=== PATIENT | female | born 1960 | race Caucasian/White ===

== ENCOUNTER 2018-11-08 12:14 | Emergency (ER) | payer BC ==
--- NOTE | 2018-11-08 12:20 | UC ---
Abdominal Pain Female HPI - HPI Summary HPI Summary: 58 yo female presents with RUQ abdominal pain. She tells me that she has been having mild RUQ cramping and stabbing pain for the last 2-3 weeks. She saw her PCP who referred her to general surgery. She tells me that an ultrasound was performed and gallstones were found. She was placed on a "gallbladder diet" and surgery was scheduled for November 2018. Today around 1100, about 1 hour after eating cereal for breakfast, she developed acute right sided abdominal and RUQ sharp pain that is worse with deep breaths and movement. The pain has been getting worse since that time. Her friend drove her to . Currently she is in severe pain, but denies fever, nausea, vomiting, diarrhea, dysuria, or hematuria. No SOB or chest pain. No back pain. - History of Current Complaint Stated Complaint: UPPER RIGHT SIDE ABD PAIN Time Seen by Provider: 11/08/18 12:20 Hx Obtained From: Patient Onset/Duration: Sudden Onset Severity Initially: Severe Severity Currently: Severe Pain Intensity: 10 Pain Scale Used: 0-10 Numeric Allergies/Adverse Reactions: Allergies Allergy/AdvReac Type Severity Reaction Status Date / Time No Known Allergies Allergy Verified 11/08/18 13:41 Home Medications: Home Medications NK [No Home Medications Reported] 11/08/18 [History Confirmed 11/08/18] PMH/Surg Hx/FS Hx/Imm Hx - Additional Past Medical History Additional PMH: Gallstones - Surgical History Surgical History: None - Family History Known Family History: Positive: None - Social History Lives: With Family Alcohol Use: Rare Substance Use Type: None Smoking Status (MU): Light Every Day Tobacco Smoker Type: Cigarettes Amount Used/How Often: 5 per day Length of Time of Smoking/Using Tobacco: 40 yrs Have You Smoked in the Last Year: Yes Review of Systems All Other Systems Reviewed And Are Negative: Yes Constitutional: Positive: Negative Skin: Positive: Negative Respiratory: Positive: Negative Cardiovascular: Positive: Negative Gastrointestinal: Positive: Abdominal Pain Genitourinary: Positive: Negative Neurovascular: Positive: Negative Neurological: Positive: Negative Psychological: Positive: Negative Physical Exam - Summary Physical Exam Summary: GENERAL: Moderate pain distress. Clutching right abdomen. Pain worse with movement. SKIN: No rashes, sores, lesions, or open wounds. CHEST: CTAB. No r/r/w. No accessory muscle use. Breathing comfortably and in no distress. CV: RRR. Without m/r/g. Pulses intact. Cap refill <2seconds ABDOMEN: RUQ severe TTP. Positive begum sign. No CVA tenderness. Bowel sounds present NEURO: Alert. PSYCH: Age appropriate behavior. Triage Information Reviewed: Yes Vital Signs: Vital Signs: Temp Pulse Resp BP Pulse Ox 97.1 F 72 20 148/108 98 11/08/18 12:20 11/08/18 12:20 11/08/18 12:20 11/08/18 12:20 11/08/18 12:20 Vital Signs Reviewed: Yes Abd Pain Female Course/Dx - Course Course Of Treatment: I discussed with the pt and her friend, Trice, with her today that her symptoms could be related to acute cholecystitis. I advised pt and her friend that pt should be evaluated in the ED. She was agreeable to this. I discussed ambulance transfer and giving her IVF and IV pain medicine here in the clinic, but pt declined and prefers to have her friend drive her. - Differential Dx/Diagnosis Provider Diagnosis: RUQ pain, Gallstone Discharge - Sign-Out/Discharge Documenting (check all that apply): Patient Departure All imaging exams completed and their final reports reviewed: No Studies - Discharge Plan Condition: Stable Disposition: HOME-RECOMMEND TO ED Referrals: Kaitlyn MARINA,Sara Guerra [Primary Care Provider] - Additional Instructions: Please go to the ER for further evaluation of your abdominal pain YOU HAVE DECLINED TRANSFER TO THE ER BY AMBULANCE. BE ADVISED THAT NOT TRAVELING IN A MONITORED SETTING YOU COULD BE RISKING WORSENING OF YOUR CONDITION THAT COULD POSE A THREAT TO YOUR LIFE, HEALTH, AND MEDICAL SAFETY. - Billing Disposition and Condition Condition: STABLE Disposition: Home-Recommend to ED - Attestation Statements Provider Attestation: Per institutional requirements, I have reviewed the chart, however, I was not consulted specifically or made aware of this patient by the midlevel provider. I did not personally evaluate, interact with , or disposition this patient.
[2018-11-08 12:28] VITALS: BP 148/108
--- OUTSIDE RECORDS SUMMARY | 2018-11-08 12:37 | XMS REPORT | Continuity of Care Document ---
:1960 External Reference #:[id number] Author Name Facundo Wilder M.D. Address [address] [place] [address] [address] [place] [address] Care Team Providers Name Role Phone HCP/LW on file Primary Care Physician Unavailable Payers Date Identification Numbers Payment Provider Subscriber Effective: Policy Number: [id number] David Paulina James 2018 Ind/Ppo/Hmo/Pos PayID: [id number] [address] [address] [place] [address] Advance Directives Description No Information Available Problems Date Description Provider Status Onset: 12/05/2016 Gastroesophageal reflux disease Sara Sahni PA Active Onset: 12/20/2016 Tobacco user Sara Sahni PA Active Family History Date Family Member(s) Observation Comments Father Diabetes, Nos Father Heart Problems Father Stroke Children 2 Social History Type Date Description Comments Sex Unknown Education High School Completed Marital Status Smoke-Free Home is not smoke-free Occupation Warehouse/Manufacturing Work Status Currently Working Tobacco Use Reviewed: 10/28/18 Light tobacco smoker (10 1/2 ppd (or less), or fewer cigarettes/day) started age 16 21 pack years as of 10/28/18 Smoking Status Reviewed: 10/28/18 Light tobacco smoker (10 1/2 ppd (or less) , or fewer cigarettes/day) started age 16 21 pack years as of 10/28/18 ETOH Use Occassional Alcohol Recreational Drug Use Denies Drug Use Tobacco Use Start: Unknown Light tobacco smoker (10 or fewer cigarettes/day) Sun Exposure Uses sunscreen Seat Belt/Car Seat Seat Belt Use - Yes Guns in Home No Smoke Alarms Yes smoke alarm Currently Active Patient is currently not sexually active Allergies, Adverse Reactions, Alerts Description No Known Drug Allergies Medications Medication Date Status Form Strength Qnty SIG Indications Ordering Provider Chantix Active Tablets 0.5mg X 11 53tabs use as F17.210 Shalinicoff , Starting 019 & 1 mg X directed Facundo, Month Toni 42 on package M.D. Tramadol HCL Active Tablets 50mg 30tabs 1 tab by R10.10 Silcoff , 019 mouth Facundo, every 8 M.D. hours as needed for pain Prilosec OTC Active Tablets DR 20mg K21.9 Hektor, 017 LAURA Ruiz Womens One Active Tablets 1 po daily Unknown Daily 017 Ibuprofen Active Tablets 200mg as needed Unknown 017 Immunizations CPT Code Status Date Vaccine Lot # [id number] Given 12/20/2016 Adacel or Boostrix, TDaP [id number] Vital Signs Date Vital Result Comment 10/28/2018 2:28pm BP Systolic 140 mmHg BP Diastolic 80 mmHg Height 65 inches 5'5" Weight 170.50 lb BMI (Body Mass Index) 28.4 kg/m2 12/20/2016 8:49am BP Systolic 130 mmHg BP Diastolic 80 mmHg Height 65 inches 5'5" Weight 197.00 lb BMI (Body Mass Index) 32.8 kg/m2 12/05/2016 11:04am BP Systolic 134 mmHg BP Diastolic 80 mmHg Height 65 inches 5'5" Weight 197.00 lb BMI (Body Mass Index) 32.8 kg/m2 Results Test Date Facility Test Result H/L Range Note Comp Metabolic Panel 10/28/2018 [facility] Sodium 131 mmol/L Low 135- 145 [phone] Potassium 4.6 mmol/L N 3.5-5.0 Chloride 95 mmol/L Low 101-111 Co2 Carbon Dioxide 27 mmol/L N 22-32 Anion Gap 9 mmol/L N 2-11 Glucose 383 mg/dL High 70-100 Blood Urea Nitrogen 12 mg/dL N 6-24 Creatinine 0.61 mg/dL N 0.51-0.95 BUN/Creatinine Ratio 19.7 N 8-20 Calcium 9.7 mg/dL N 8.6-10.3 Total Protein 7.0 g/dL N 6.4-8.9 Albumin 3.7 g/dL N 3.2-5.2 Globulin 3.3 g/dL N 2-4 Albumin/Globulin Ratio 1.1 N 1-3 Total Bilirubin 0.60 mg/dL N 0.2-1.0 Alkaline Phosphatase 155 U/L High 34-104 Alt 13 U/L N 7-52 Ast 9 U/L Low 13-39 Egfr Non- 100.0 >60 Egfr 121.1 >60 1 CBC Auto Diff 10/28/2018 [facility] White Blood 12.5 10^3/uL High 3.5 -10.8 [phone] Count Red Blood Count 4.82 10^6/uL N 3.70-4.87 Hemoglobin 13.7 g/dL N 12.0-16.0 Hematocrit 40 % N 33-41 Mean Corpuscular Volume 82 fL N 80-97 Mean Corpuscular Hemoglobin 28 pg N 27-31 Mean Corpuscular HGB Conc 35 g/dL N 31-36 Red Cell Distribution Width 14 % N 10.5-15 Platelet Count 452 10^3/uL High 150-450 Mean Platelet Volume 8.5 fL N 7.4-10.4 Abs Neutrophils 9.2 10^3/uL High 1.5-7.7 Abs Lymphocytes 2.0 10^3/uL N 1.0-4.8 Abs Monocytes 0.9 10^3/uL High 0-0.8 Abs Eosinophils 0.2 10^3/uL N 0-0.6 Abs Basophils 0.1 10^3/uL N 0-0.2 Abs Nucleated RBC 0 10^3/uL Granulocyte % 74.1 % Lymphocyte % 16.1 % Monocyte % 7.5 % Eosinophil % 1.4 % Basophil % 0.9 % Nucleated Red Blood Cells % 0 Laboratory test finding 10/28/2018 [facility] GGTP 81 U/L High 9- 64.0 [phone] Amylase 17 U/L Low 29-103 Lipase 26 U/L N 11.0-82.0 Laboratory test 12/20/2016 [facility] Vitamin D Total 19.2 ng/mL Low 30-50 finding [phone] 25(Oh) Lipid Profile 12/20/2016 [facility] Triglycerides 107 mg/dL N 2 (Trig/Chol/HDL) [phone] Cholesterol 186 mg/dL N 3 HDL Cholesterol 53.4 mg/dL N 4 LDL Cholesterol 111 mg/dL N 5 Comp Metabolic Panel 12/20/2016 [facility] Sodium 136 mmol/L N 133- 145 [phone] Potassium 4.4 mmol/L N 3.5-5.0 Chloride 102 mmol/L N 101-111 Co2 Carbon Dioxide 26 mmol/L N 22-32 Anion Gap 8 mmol/L N 2-11 Glucose 148 mg/dL High 70-100 Blood Urea Nitrogen 18 mg/dL N 6-24 Creatinine 0.65 mg/dL N 0.51-0.95 BUN/Creatinine Ratio 27.7 High 8-20 Calcium 9.4 mg/dL N 8.6-10.3 Total Protein 7.0 g/dL N 6.4-8.9 Albumin 4.0 g/dL N 3.2-5.2 Globulin 3.0 g/dL N 2-4 Albumin/Globulin Ratio 1.3 N 1-3 Total Bilirubin 0.50 mg/dL N 0.2-1.0 Alkaline Phosphatase 106 U/L High 34-104 Alt 33 U/L N 7-52 Ast 18 U/L N 13-39 Egfr Non- 93.6 N >60 Egfr 120.4 N >60 6 CBC Auto Diff 12/20/2016 [facility] White Blood Count 9.1 10^3/uL N 3.5-10.8 [phone] Red Blood Count 5.03 10^6/uL N 4.0-5.4 Hemoglobin 14.2 g/dL N 12.0-16.0 Hematocrit 42 % N 35-47 Mean Corpuscular Volume 84 fL N 80-97 Mean Corpuscular Hemoglobin 28 pg N 27-31 Mean Corpuscular HGB Conc 34 g/dL N 31-36 Red Cell Distribution Width 15 % N 10.5-15 Platelet Count 312 10^3/uL N 150-450 Mean Platelet Volume 9 um3 N 7.4-10.4 Abs Neutrophils 5.6 10^3/uL N 1.5-7.7 Abs Lymphocytes 2.6 10^3/uL N 1.0-4.8 Abs Monocytes 0.7 10^3/uL N 0-0.8 Abs Eosinophils 0.2 10^3/uL N 0-0.6 Abs Basophils 0.1 10^3/uL N 0-0.2 Abs Nucleated RBC 0 10^3/uL N Granulocyte % 60.9 % N 38-83 Lymphocyte % 28.4 % N 25-47 Monocyte % 7.2 % N 1-9 Eosinophil % 2.6 % N 0-6 Basophil % 0.9 % N 0-2 Nucleated Red Blood Cells % 0 N Urinalysis Profile 12/20/2016 [facility] Urine Color Yellow N [phone] Urine Appearance Clear N Urine Specific Tatum 1.014 N 1.010-1.030 Urine pH 6.0 N 5-9 Urine Urobilinogen Negative N Negative Urine Ketones Negative N Negative Urine Protein Negative N Negative Urine Leukocytes Trace Abnormal Negative Urine Blood Negative N Negative Urine Nitrite Negative N Negative Urine Bilirubin Negative N Negative Urine Glucose Negative N Negative Urine White Blood Cell Trace(0-5/hpf) N Absent Urine Red Blood Cell Trace(0-2/hpf) N Absent Urine Bacteria Absent N Absent Urine Squamous Epithelial Cell Present Abnormal Absent Laboratory test 12/20/2016 [facility] Urine Culture And SEE RESULT 7 finding [phone] Sensitivities BELOW Laboratory test 12/20/2016 [facility] Cytology SEE RESULT 8 finding [phone] BELOW Human Papilloma Virus Rna Negative N Negative 9 1 Because ethnic data is not always readily available, this report includes an eGFR for both -Americans and non- Americans. The National Kidney Disease Education Program (NKDEP) does not endorse the use of the MDRD equation for patients that are not between the ages of 18 and 70, are , have extremes of body size, muscle mass, or nutritional status, or are non- or non-. According to the National Kidney Foundation, irrespective of diagnosis, the stage of the disease is based on the level of kidney function: Stage Description GFR(mL/min/1.73 m(2)) 1 Kidney damage with normal or decreased GFR 90 2 Kidney damage with mild decrease in GFR 60-89 3 Moderate decrease in GFR 30-59 4 Severe decrease in GFR 15-29 5 Kidney failure <15 (or dialysis) 2 Desirable <150 Borderline high 150-199 High 200-499 Very High >500 3 Desirable <200 Borderline high 200-239 High >239 4 Low <40 Desirable: 40-60 High: >60 5 Desirable: <100 mg/dL Near Optimal: 100-129 mg/dL Borderline High: 130-159 mg/dL High: 160-189 mg/dL Very High: >189 mg/dL 6 Because ethnic data is not always readily available, this report includes an eGFR for both -Americans and non- Americans. The National Kidney Disease Education Program (NKDEP) does not endorse the use of the MDRD equation for patients that are not between the ages of 18 and 70, are , have extremes of body size, muscle mass, or nutritional status, or are non- or non-. According to the National Kidney Foundation, irrespective of diagnosis, the stage of the disease is based on the level of kidney function: Stage Description GFR(mL/min/1.73 m(2)) 1 Kidney damage with normal or decreased GFR 90 2 Kidney damage with mild decrease in GFR 60-89 3 Moderate decrease in GFR 30-59 4 Severe decrease in GFR 15-29 5 Kidney failure <15 (or dialysis) 7 SEE RESULT BELOW Name: PAULINA JAMES : [address]: Sara MARINA Acct: [id number] Unit: [id number] AGE: 56 Location: [facility] Re12/20/16 SEX: F Status: REG REF SPEC: [id number] RIMA: 12/20/16-[address] [place] [address] DR: Sara MARINA REQ: [id number] RECD: 12/20/16 STATUS: COMP _ SOURCE: URINE SPDESC: ORDERED: Urine Culture Procedure Result Reported Site Urine Culture Final 12/21/16- 1247 ML No growth of clinically significant organisms * ML - MAIN LAB ([facility]) . END OF REPORT * ML=Testing performed at Main Lab DEPARTMENT OF PATHOLOGY, [address] [place] [address] Randell Cr M.D. Director [facility] # [id number] 8 SEE RESULT BELOW Name: PAULINA JAMES : [address]: Sara MARINA Acct: [id number] Unit: [id number] AGE: 56 Location: [facility] Re12/20/16 SEX: F Status: REG REF SPEC: [id number] RIMA: 12/20/16-[address]: Sara MARINA REQ: [id number] RECD: 12/20/16 STATUS: SOUT _ ORDERED: TP IMAGE ANAL, HPV/Thin Prep COMMENTS: [id number] FINAL DIAGNOSIS Negative for Intraepithelial lesion or Malignancy A. Ectocervical/Endocervical Specimen Adequacy: Satisfactory of evaluation Transformation zone component identified Patient Information: HPV: High risk HPV RNA testing regardless of pap results. Actual Specimen Date: 12/20/16 LMP If Unknown: 6 yrs ago Spec Date if unknown: unknown ?: N Post Menopausal?: Y Hysterectomy?: N Previous Abnormal Pap Smears?:Y If Yes, enter Diagnosis: unknown Date Time Test Result Flag (u) Normal Range 12/20/16 0954 HPV RNA Negative Negative The high-risk HPV types detected by the assay include: 16, 18, 31, 33, 35, 39, 45, 51, 52, 56, 58, 59, 66, and 68. Signed (signature on file) LIZ Munoz(ASC) 12/21 1533 This Pap test was evaluated with the assistance of the NumonyxPrep Test Imaging System. Due to cytologic findings at the forgesmith microscope, comprehensive manual rescreening by a Radiation Oncology Nurse may be required. The Pap Smear is a screening test designed to aid in the detection of premalignant and malignant conditions of the uterine cervix. It is not a diagnostic procedure and should not be used as the sole means of detecting cervical cancer. Both false- positive and false- negative reports do occur. Depending on your risk status, a Pap smear should be obtained and evaluated every 1-3 years. END OF REPORT * ML=Testing performed at Main Lab DEPARTMENT OF PATHOLOGY, [address] [place] [address] RUN DATE: 12/21/16 [facility] LAB LIVE PAGE 1 Patient: PAULINA JAMES [id number] (Continued) Randell Cr M.D. Director [facility] # [id number] 9 The high-risk HPV types detected by the assay include: 16, 18, 31, 33, 35, 39, 45, 51, 52, 56, 58, 59, 66, and 68. Procedures Date Code Description Status 12/27/2016 [id number] Mammogram Completed Encounters Type Date Location Provider Dx Diagnosis Office Visit 10/28/2018 Main Office Sara Sahni PA R10.10 Upper abdominal pain, 2:30p unspecified F17.210 Nicotine dependence, cigarettes, uncomplicated Office Visit 12/20/2016 8:45a Main Office Sara Sahni PA Z00.00 Encntr for general adult medical exam w/o abnormal findings Z12.31 Encntr screen mammogram for malignant neoplasm of breast Z12.4 Encounter for screening for malignant neoplasm of cervix Z23 Encounter for immunization Z12.11 Encounter for screening for malignant neoplasm of colon Z41.8 [facility] 12/[facility]/2016 11:00a Main Office Sara Sahni, K21.9 Gastro- esophageal PA reflux disease without esophagitis F17.210 Nicotine dependence, cigarettes, uncomplicated R10.13 Epigastric pain Plan of Treatment 10/28/2018 - Sara Sahni, PAR10.10 Upper abdominal pain, unspecifiedNew Medication:Tramadol HCL 50 mg - 1 tab by mouth every 8 hours as needed for painNew Xrays:ultrasound abdomen, limited, Ordered: 10/28/18Comments:RUQ abdominal pain w positive Benson sign, suspicious for gallbladder dz. Labs drawn today, will get RUQ abdominal u/s gosia. Rx for tramadol for pain control. Discussed gallstone appropriate diet. Pt to call w any questions or concerns. Further plan based on u/s and lab results.F17.210 Nicotine dependence, cigarettes, uncomplicatedNew Medication:Chantix Starting Month Toni 0.5 mg X 11 & amp; 1 mg X 42 - use as directed on packageComments:Smoking cessation counseling <10 minutes done today. Pt is ready to quit. Rx for chantix.
== END 2018-11-08 12:45 | disposition home health service (06) ==
LOC: UCCORT 12:14
DX: K80.20 Calculus of gallbladder without cholecystitis without obstruction (principal); R10.11 Right upper quadrant pain; F17.210 Nicotine dependence, cigarettes, uncomplicated
CPT/HCPCS: 99212; G0463

== ENCOUNTER 2018-11-08 13:36 | Inpatient (IN) | payer BC ==
--- NOTE | 2018-11-08 14:22 | ED ---
Abdominal Pain/Female - HPI Summary HPI Summary: This patient is a 58 year old female presenting to [facility] accompanied by with a chief complaint of abd pain since 1030 today. Patient states that she is scheduled to have a cholecystectomy on December 03, 2018. Patient was on antibiotics for the past week. Patient states the pain was sudden onset and so severe that she cannot move due to pain. The pain is located in the mid-right abd, and radiates to her back and shoulder. The pain is rated 10/10 in severity. Symptoms aggravated by movement. Symptoms alleviated by nothing. Patient additionally reports nausea. - History of Current Complaint Chief Complaint: EDAbdPain Stated Complaint: ABD PAIN PER PT Time Seen by Provider: 11/08/18 14:11 Hx Obtained From: Patient Onset/Duration: Lasting Hours, Still Present Timing: Constant Severity Currently: Severe Pain Intensity: 10 Pain Scale Used: 0-10 Numeric Location: Flank Radiates: Yes Radiates to: Back, Other - shoulder Character: Cramping Aggravating Factor(s): Nothing Alleviating Factor(s): Nothing Associated Signs and Symptoms: Positive: Other: - nausea Allergies/Adverse Reactions: Allergies Allergy/AdvReac Type Severity Reaction Status Date / Time No Known Allergies Allergy Verified 11/08/18 13:41 Home Medications: Home Medications Multivitamin [Multivitamins] 1 cap PO DAILY 11/08/18 [History Confirmed 11/08/18 ] PMH/Surg Hx/FS Hx/Imm Hx Previously Healthy: Yes Opthamlomology History: Denies: Hx Legally Blind EENT History: Denies: Hx Deafness - Cancer History Hx Chemotherapy: No Hx Radiation Therapy: No Infectious Disease History: No Infectious Disease History: Denies: Traveled Outside the [place] in Last 30 Days - Family History Known Family History: Negative: Hypertension - Social History Lives: With Family Alcohol Use: Rare Hx Substance Use: No Substance Use Type: Reports: None Hx Tobacco Use: Yes Smoking Status (MU): Light Every Day Tobacco Smoker Type: Cigarettes Amount Used/How Often: 5 per day Length of Time of Smoking/Using Tobacco: 40 yrs Have You Smoked in the Last Year: Yes Review of Systems Negative: Fever Negative: Sore Throat, Ear Ache Negative: Chest Pain Negative: Shortness Of Breath Positive: Abdominal Pain, Nausea Negative: burning, dysuria Negative: Edema Negative: Rash Negative: Headache All Other Systems Reviewed And Are Negative: Yes Physical Exam - Summary Physical Exam Summary: Constitutional: Well-developed, Well-nourished, Alert. Skin: Warm, Dry HENT: Normocephalic; Atraumatic Eyes: Conjunctiva normal Neck: Musculoskeletal ROM normal neck. Cardio: Rhythm regular, rate normal, Heart sounds normal; Intact distal pulses; The pedal pulses are 2+ and symmetric. Radial pulses are 2+ and symmetric. Pulmonary/Chest wall: Effort normal. Abd: Moderate to severe diffuse abd pain. Worse in ruq, epigastric, llq. Rebound and guarding Musculoskeletal: Normal Lymph: Neuro: Alert, Oriented x3 Psych: Mood and affect Normal Triage Information Reviewed: Yes Vital Signs On Initial Exam: Initial Vitals Temp Pulse Resp BP Pulse Ox 99.5 F 73 22 113/66 96 11/08/18 13:41 11/08/18 13:41 11/08/18 13:41 11/08/18 13:41 11/08/18 13:41 Vital Signs Reviewed: Yes Diagnostics - Vital Signs Vital Signs Temp Pulse Resp BP Pulse Ox 11/08/18 13:41 99.5 F 73 22 113/66 96 - Laboratory Result Diagrams: 11/08/18 14:50 11/08/18 14:50 Lab Statement: Any lab studies that have been ordered have been reviewed, and results considered in the medical decision making process. - Radiology CXR Radiology Interpretation Completed By: Radiologist Summary of Radiographic Findings: CXR reveals, per radiologist, IMPRESSION: NO EVIDENCE FOR ACTIVE CARDIOPULMONARY DISEASE. ED physician has reviewed this radiology report. Abdomen XR Radiology Interpretation Completed By: Radiologist Summary of Radiographic Findings: Abdomen XR reveals, per radiologist, IMPRESSION: MILD DISTENTION OF A COUPLE SMALL BOWEL LOOPS, NONSPECIFIC PATTERN ALTHOUGH. MAY INDICATE A PARTIAL SMALL BOWEL OBSTRUCTION. ED physician has reviewed this radiology report. - CT CT Abd/Pel CT Interpretation Completed By: Radiologist - CT Abd/Pel reveals, per radiologist, IMPRESSION: Distended, thick walled gallbladder with surrounding inflammatory changes suggestive of acute cholecystitis. ED physician has reviewed this radiology report. Abdominal Pain Fem Course/Dx - Course Course Of Treatment: This patient is a 58 year old female presenting to [facility] accompanied by with a chief complaint of abd pain since 1030 today. Patient states that she is scheduled to have a cholecystectomy on December 03, 2018. Patient was on antibiotics for the past week. Patient states the pain was sudden onset and so severe that she cannot move due to pain. PE reveals moderate to severe diffuse abd pain. Worse in ruq, epigastric, llq. Rebound and guarding. CXR reveals, per radiologist, IMPRESSION: NO EVIDENCE FOR ACTIVE CARDIOPULMONARY DISEASE. ED physician has reviewed this radiology report. Abdomen XR reveals, per radiologist, IMPRESSION: MILD DISTENTION OF A COUPLE SMALL BOWEL LOOPS, NONSPECIFIC PATTERN ALTHOUGH MAY INDICATE A PARTIAL SMALL BOWEL OBSTRUCTION. ED physician has reviewed this radiology report. CT Abd/Pel reveals, per radiologist, IMPRESSION: Distended, thick walled gallbladder with surrounding inflammatory changes suggestive of acute cholecystitis. ED physician has reviewed this radiology report. Bloodwork Obtained. Urinalysis Obtained. In the ED course the patient was given Iohexol, Morphine, Zofran, Pipercillin. The pt is hemodynamically stable, alert and oriented x3. We discussed patient care with Dr. Potter (Surgery) at 194 and they recommended admitting the patient. Patient will be admitted with a dx of cholecystitis. Patient is advised to follow up with PCP in 3 days. The patient is agreeable with this plan. - Diagnoses Provider Diagnoses: Cholecystitis - Provider Notifications Discussed Care Of Patient With: Emile Potter - Surgery Time Discussed With Above Provider: 19:45 - We discussed patient care with Dr. Potter (Surgery) at 1944 and they recommended admitting the patient. Discharge - Sign-Out/Discharge Documenting (check all that apply): Patient Departure Patient Received Moderate/Deep Sedation with Procedure: No - Discharge Plan Condition: Stable Disposition: ADMITTED TO [facility] Referrals: Kaitlyn MARINA,Sara Guerra [Primary Care Provider] - - Billing Disposition and Condition Condition: STABLE Disposition: Admitted to [facility] - Attestation Statements Document Initiated by Antione: Yes Documenting Scribe: Lobo Pacheco Provider For Whom Antione is Documenting (Include Credential): MD Arti Gilmoreibnathalia Attestation: Lobo Macias scribed for Leena Garcia MD on 11/08/18 at 2036. Scribe Documentation Reviewed: Yes Provider Attestation: The documentation as recorded by the Lobo haq accurately reflects the service I personally performed and the decisions made by , Leena Garcia MD Status of Scribe Document: Viewed
[2018-11-08] MEDS ORDERED: Ondansetron INJ* 2 MG/ML VIAL IV ONE (14:23)
[2018-11-08 15:02] LABS: Hematocrit 40 % (33-41); Hemoglobin 13.4 g/dL (12.0-16.0); Mean Corpuscular HGB Conc 34 g/dL (31-36); Mean Corpuscular Hemoglobin 28 pg (27-31); Mean Corpuscular Volume 83 fL (80-97); Mean Platelet Volume 8.1 fL (7.4-10.4); Platelet Count 622 10^3/uL (150-450); Red Cell Distribution Width 14 % (10.5-15); White Blood Count 16.7 10^3/uL (3.5-10.8)
[2018-11-08] MEDS ORDERED: Morphine 4 MG/ML VIAL (1 ml) 4 MG/ML VIAL ONE (15:06)
[2018-11-08] MEDS: Morphine 4 MG/ML VIAL (1 ml) 4 MG/ML VIAL IV PRN ×2 (15:07→20:53)
[2018-11-08 15:19] LABS: Albumin 3.5 g/dL (3.2-5.2); BUN/Creatinine Ratio 16.1 (8-20); C Reactive Protein 13.69 mg/L (<8.01); EGFR African American 118.8 (>60); EGFR Non-African American 98.2 (>60); Globulin 3.4 g/dL (2-4); Potassium 4.1 mmol/L (3.5-5.0); Total Bilirubin 0.3 mg/dL (0.2-1.0); Total Protein 6.9 g/dL (6.4-8.9)
[2018-11-08 15:25] LABS: ABS Basophils 0 10^3/ul (0-0.2); ABS Eosinophils 0.1 10^3/ul (0-0.6); ABS Lymphocytes 1.5 10^3/ul (1.0-4.8); ABS Nucleated RBC 0 10^3/ul; Eosinophil % 0.7 %; Lymphocyte % 8.8 %; Nucleated Red Blood Cells % 0
[2018-11-08 17:18] LABS: Urine Appearance Cloudy; Urine Bacteria 1+ (Absent); Urine Bilirubin Negative (Negative); Urine Blood Negative (Negative); Urine Color Yellow; Urine Glucose 3+(>=500 mg/dL) (Negative); Urine Ketones Trace (Negative); Urine Nitrite Negative (Negative); Urine Protein Negative (Negative); Urine Red Blood Cell 1+(3-5/hpf) (Absent); Urine Squamous Epithelial Cell Present (Absent); Urine Urobilinogen Negative (Negative); Urine White Blood Cell 1+(6-10/hpf) (Absent)
[2018-11-08] MEDS ORDERED: Iohexol 300* (CONTRAST) 10 ML SDV IV ONE (17:47)
[2018-11-08] MEDS ORDERED: Morphine 4 MG/ML VIAL (1 ml) 4 MG/ML VIAL IV PRN (19:42)
[2018-11-08] MEDS ORDERED: ED Piperacillin/Tazobac 3.375 3.375 GM/100 ML PREMIX.SET IVPB ONE (19:49)
[2018-11-08] MEDS ORDERED: Zosyn 3.375 GM IV - ED ONCE IVPB ONE ×2 (21:00)
[2018-11-08] MEDS ORDERED: Ondansetron INJ* 2 MG/ML VIAL IV PRN (21:33)
[2018-11-08] MEDS ORDERED: Piperacillin/Tazobactam VIAL*) 3.375 GM in NS 0.9% 100 ML* 100 ML IVPB SCH (22:00)
[2018-11-08] MEDS ORDERED: Dextrose 50% Syringe 50 ML* 25 GM/50 ML SYRINGE IV PUSH PRN (23:02)
[2018-11-08] MEDS: HYDROmorphone INJ1* 1 MG/ML SYRINGE IV SLOW PU PRN (23:28)
--- NOTE | 2018-11-08 23:36 | HP ---
CC: Emile Potter MD; LAURA Booth INTERVAL UPDATE HISTORY AND PHYSICAL: DATE OF ADMISSION: 11/08/18 CHIEF COMPLAINT: Abdominal pain. HISTORY OF PRESENT ILLNESS: Ms. Nguyen is a 58-year-old female who has been seen a few times in the office over the last week with acute cholecystitis. She had a week of antibiotics and was feeling better, and was seen 2 days ago and was scheduled for elective surgery in the next week or two; however, today she started to have intense exacerbation of her pain and comes back to the emergency room. She is not having any change in color of stool or urine. No vomiting. She is a little queasy. She is not having fevers. The pain is exactly like what she had before. She had had an ultrasound done on 10/30/18, which showed a stone in the neck of the gallbladder with some mild gallbladder wall thickening. The current evaluation includes a CT scan, which shows distended thick-walled gallbladder with surrounding inflammatory changes. Her laboratory study showed elevated white blood count of 16.7 and electrolytes are essentially normal and her bilirubin is normal. PHYSICAL EXAMINATION GENERAL: She is a well-developed, well-nourished female. She just appears acutely uncomfortable. VITAL SIGNS: Temperature is 99.5, heart rate 93, respirations 18 and unlabored , O2 saturation 91%, blood pressure 122/63. She is 5 feet 5 inches, 170 pounds with a BMI of 28. LUNGS: Breathing is easy and unlabored. HEART: Regular. ABDOMEN: Soft and exquisitely tender over the right subcostal region with Elizalde sign. No gross peritonitis. SKIN: Warm and well perfused. She is not diabetic. She is not jaundiced. She is maybe a little flushed. IMPRESSION: A 58-year-old female with known biliary disease, planned for elective laparoscopic cholecystectomy, now returns with an acute exacerbation. PLAN/RECOMMENDATIONS: She will be admitted for intravenous hydration, analgesia , and we will likely need her gallbladder out in the next 24 to 48 hours. [id number]/[facility]PS #: [id number] MTDD
[2018-11-09] MEDS: HYDROmorphone INJ1* 1 MG/ML SYRINGE IV SLOW PU PRN ×5 (00:48→11:45)
[2018-11-09] MEDS: ZOSYN 3.375 GM Q8H per EXTENDED INFUSION IVPB SCH ×6 (00:49→17:45)
--- NOTE | 2018-11-09 05:58 | CONS ---
HOSPITAL MEDICINE CONSULTATION REPORT: DATE OF CONSULT: 11/08/18 PROVIDER: Gildardo Valdez NP. ATTENDING PHYSICIAN: Dr. Potter. CONSULTING PHYSICIAN: Dr. Cricket Alexis (dictated by Gildardo Valdez NP). REASON FOR CONSULT: Hyperglycemia. HISTORY OF PRESENT ILLNESS: Ms. Nguyen is a 58-year-old female, who has past medical history of recent type 2 diabetes diagnosis, who presented to the emergency room with complaints of sudden onset of acute abdominal pain. Patient reports that approximately 2 weeks ago, she had what she refers to as " a gallbladder attack." At that time, she was seen by her primary care provider and sent for a gallbladder ultrasound. She was found to have stones and ultimately referred to surgery due to the findings. She saw Dr. Dominguez last week in the office and was scheduled on 12/03/18 to have her gallbladder removed. She reports that at the time she saw Dr. Dominguez she was placed on antibiotics for 7 days and she completed that 7-day course. She reports that on Saturday, , and Saturday, she was feeling well and having no issues. She reports that she has been maintaining a gallbladder diet. She reports that she awoke this morning feeling fine. She had tea and Raisin Bran without any issue. She went shopping with one of her friends and reports that while in one of the stores developed the sudden onset of abdominal pain that was sharp, crampy in her upper abdomen, was not relieved or provoked by anything. She reports that it felt like a cramp in her upper abdomen. She reports that she felt chilled. Due to these symptoms and the continuing, progressively worsening abdominal pain, she presented to the emergency room for further evaluation. While in the emergency room, she had routine lab work drawn. She was found to have leukocytosis with a white count of 16.[address] she had a CT of the abdomen that showed acute cholecystitis. Due to these findings, she was admitted to the hospital by surgery. We were asked to consult due to the findings of hyperglycemia and new diagnosis of type 2 diabetes. PAST MEDICAL HISTORY: Type 2 diabetes. PAST SURGICAL HISTORY: [place] teeth. MEDICATIONS: Home medications, none. ALLERGIES: No known drug allergies. FAMILY HISTORY: Father with stroke and hypertension in his 60s, father with type 1 diabetes, adult onset. Mother with history of lymphoma. SOCIAL HISTORY: Patient currently smokes approximately 5 cigarettes a day. She reports that she smoked for approximately 40 years a quarter to half a pack a day. Denies any alcohol or illicit drug use. She currently works at [employer]. She is and lives with her . Surrogate decision maker in the event she is unable to make her own decisions is her . She is a full code. REVIEW OF SYSTEMS: She does report feeling hot and chills. Denies any chest pain or edema, cough, hemoptysis, or shortness of breath. She does report nausea. Denies any vomiting. Denies diarrhea. She does report right upper quadrant abdominal pain that is sharp and cramping. Denies any hematuria, dysuria, focal weakness, or sensory loss. Denies any visual complaints, dysphagia, arthralgias, myalgias. She does report a rash to her posterior neck. Denies any psychosis or anxiety. PHYSICAL EXAM: General: At this time, Ms. Nguyen is a 58-year-old female. She is resting on the stretcher in the emergency room. She appears to be uncomfortable, holding her upper abdomen. Vital Signs: Blood pressure is 114/ 65, heart rate 84, respirations are 17, O2 saturation is 94%, temperature was 98.2. HEENT: Head is atraumatic, normocephalic. Eyes, EOMs are intact. Sclerae anicteric and not pale. Oral mucosa appeared to be moist. Neck is supple. Lungs are clear to auscultation bilaterally. No wheezes, rales, or rhonchi. Cardiac: S1, S2. Regular rate and rhythm. No murmurs, rubs, or gallops. Abdomen: Soft with significant tenderness noted to the right upper quadrant and mid epigastric region. Bowel sounds are present x4. Neurologic: She is awake, alert, and oriented x3. Speech is clear. Thought process is intact. There are no gross focal deficits. Skin is intact. DIAGNOSTIC STUDIES/LAB DATA: WBCs are 6.7, RBCs are 4.80, hemoglobin is 13.4, hematocrit is 40, platelet count is 622. Sodium 134, potassium 4.1, chloride 99 , carbon dioxide was 28, anion gap was 7, BUN was 10, creatinine 0.62, glucose was 323, lactic acid of 1.1 and repeat 0.8, calcium 9.0. Total bilirubin was 0.30, ASTs were 10, ALTs were 12, alkaline phosphatase was 106. C-reactive protein was 13.69, amylase was 19, and lipase was 17. Urine was cloudy, pH was 5, specific gravity of 1.030. Urine protein was negative. Ketones were trace. Urine blood, nitrites, bilirubin, urobilinogen were all negative. Urine leukocyte esterase was 1+, wbc's were 1+, rbc's were 1+, squamous epithelial cells were present, urine bacteria was 1+, urine glucose was 3+. She had an x-ray of the abdomen, radiologist impression: Mild distention of a couple of small-bowel loops, nonspecific pattern, although may indicate partial small-bowel obstruction. She had a CT of the abdomen and pelvis, distended thick- walled gallbladder, surrounding inflammatory changes suggestive of acute cholecystitis. She had a chest x-ray, radiologist impression: No evidence of active cardiopulmonary disease. IMPRESSION AND PLAN: Ms. Nguyen is a 58-year-old female with past medical history significant for new-onset type 2 diabetes who presented to the hospital with acute abdominal pain. She was seen by surgery and we were asked to consult due to her new onset of diabetes. Our recommendations are as follows: 1. Acute cholecystitis. Management per surgery. 2. Abdominal pain. The patient does have an elevated platelet count. I suspect this is related to acute phase reaction from her acute cholecystitis. We will continue to monitor her CBC. 3. New-onset type [address] her on fingersticks q.6 hours with lispro sliding scale q.6 hours. She can be converted to fingersticks a.c. when she is able to tolerate a diet after surgery. 4. DVT prophylaxis. Per surgery. 5. FEN. She is on a clear liquid diet. 6. Code status. She is a full code. TIME SPENT: Time spent on this consultation was approximately 45 minutes, greater than half that time was spent at the bedside reviewing the events leading thus far to her hospitalization, performing my physical exam, and implementing my plan of care. I have discussed with my attending, Dr. Cricket Alexis, and he is in agreement with my plan. GILDARDO VALDEZ, RED LEAD BURNER [id number]/[facility] #: [id number] JAYLIN
[2018-11-09] MEDS ORDERED: Insulin LISPRO* 1 UNITS UNIT SUBCUT SCH ×2 (07:30)
[2018-11-09 08:21] LABS: ABS Basophils 0.1 10^3/ul (0-0.2); ABS Eosinophils 0.1 10^3/ul (0-0.6); ABS Lymphocytes 1.6 10^3/ul (1.0-4.8); ABS Monocytes 1.2 10^3/ul (0-0.8); ABS Neutrophils 10.3 10^3/ul (1.5-7.7); ABS Nucleated RBC 0 10^3/ul; Eosinophil % 0.6 %; Hematocrit 38 % (33-41); Hemoglobin 12.8 g/dL (12.0-16.0); Mean Corpuscular HGB Conc 33 g/dL (31-36); Mean Corpuscular Hemoglobin 28 pg (27-31); Mean Corpuscular Volume 83 fL (80-97); Mean Platelet Volume 8.2 fL (7.4-10.4); Nucleated Red Blood Cells % 0; Platelet Count 546 10^3/uL (150-450); Red Blood Count 4.58 10^6 /uL (3.70-4.87); Red Cell Distribution Width 14 % (10.5-15); White Blood Count 13.2 10^3/uL (3.5-10.8)
[2018-11-09 08:24] LABS: Albumin 3.2 g/dL (3.2-5.2); Calcium 8.9 mg/dL (8.6-10.3); EGFR African American 130.9 (>60); EGFR Non-African American 108.2 (>60); Globulin 3.2 g/dL (2-4); Potassium 3.9 mmol/L (3.5-5.0); Total Bilirubin 0.9 mg/dL (0.2-1.0); Total Protein 6.4 g/dL (6.4-8.9)
--- NOTE | 2018-11-09 09:36 | PN ---
Progress Note - Progress Note Date of Service: 11/09/18 Note: HD#2 Afeb, VS PK Voiding Still a lot of pain Abd--Still quite tender with Elizalde's sign Labs noted Impr: Acute cholecystitis, not any better on Abx Will plan lap pradeep She understands and agrees.
[2018-11-09] MEDS ORDERED: Dextrose 50% Syringe 50 ML* 25 GM/50 ML SYRINGE IV PUSH PRN (09:55)
[2018-11-09] MEDS ORDERED: ceFOXitin 2 GM IVPREMIX* 2 GM/50 ML BAG ONE (11:12)
[2018-11-09] MEDS ORDERED: Ondansetron INJ* 2 MG/ML VIAL IV ONE (11:46)
[2018-11-09] MEDS ORDERED: Metoclopramide IV* 5 MG/ML 2 ML VIAL IV SLOW PU ONE (11:47)
[2018-11-09] MEDS ORDERED: fentaNYL* 50 MCG/ML 2 ML VIAL (100 MCG VIAL) ONE ×2 (12:17→14:09)
[2018-11-09] MEDS ORDERED: Midazolam* 1 MG/ML 5 ML VIAL (5 MG) ONE (12:18)
[2018-11-09] MEDS: Insulin LISPRO* 1 UNITS UNIT SUBCUT SCH ×3 (12:20→21:10)
[2018-11-09] MEDS ORDERED: Metoclopramide IV* 5 MG/ML 2 ML VIAL ONE (12:21)
[2018-11-09] MEDS ORDERED: Ondansetron INJ* 2 MG/ML VIAL ONE (12:22)
[2018-11-09] MEDS ORDERED: Insulin REGULAR(*) 1 UNITS UNIT ONE (13:21)
[2018-11-09] MEDS ORDERED: Acetaminophen IV 1GM/100ML * 100 ML ONE (13:35)
[2018-11-09] MEDS ORDERED: Bupivacaine 0.25% W/EPI* 10 ML SDV ONE (13:37)
[2018-11-09] MEDS ORDERED: Propofol* 10 MG/ML 20 ML BTL ONE (14:15)
[2018-11-09] MEDS ORDERED: Ketorolac INJ* 30 MG/ML 1 ML VIAL ONE (14:15)
[2018-11-09] MEDS ORDERED: Dexamethasone IV* 4 MG/ML 1 ML (4 MG) ONE (14:15)
[2018-11-09] MEDS ORDERED: Succinylcholine* 20 MG/ML 10 ML VIAL ONE (14:15)
[2018-11-09] MEDS ORDERED: Lidocaine 2% PF * 5 ML VIAL ONE (14:25)
[2018-11-09] MEDS ORDERED: Insulin REGULAR(*) 1 UNITS UNIT SUBCUT ONE (14:26)
[2018-11-09] MEDS ORDERED: oxyCODONE TAB* 5 MG TAB PO PRN (14:27)
[2018-11-09] MEDS ORDERED: Acetaminophen IV 1GM/100ML * 1,000 MG/100 ML VIAL IVPB ONE (14:27)
[2018-11-09] MEDS ORDERED: Naloxone* 0.4 MG/ML 1 ML VIAL IV PRN (14:27)
[2018-11-09] MEDS ORDERED: HYDROmorphone INJ1* 1 MG/ML SYRINGE IV PRN (14:27)
[2018-11-09] MEDS ORDERED: DiMENhydriNATE IV* 50 MG/ML VIAL IV PUSH PRN (14:27)
--- NOTE | 2018-11-09 14:44 | PN ---
Subjective Date of Service: 11/09/18 Interval History: Pt seen and examined. Meds and labs reviewed. CC: Abd pain ROS: Denied SARMIENTO/dizziness, F/C, N/V, CP, SOB, increased cough, sputum production , diarrhea, constipation, dysuria, myalgias, arthralgias, throat pain, and new skin lesions. The rest of the 14 point ROS are unremarkable. PHYSICAL EXAM: GEN APPEARANCE: Awake, not in acute distress HEENT: NC/AT, PERRLA, moist oral mucosa, (-) throat erythema NECK: Soft, supple, (-) cervical LAD, (-)JVD HEART: S1S2 WNL, RRR, No MRG CHEST: CTA, BL, GAE, No W/R/R ABD: Soft, ND/(+)RUQ tenderness w/guarding, NABS 4x Q EXT: No C/C/E SKIN: Warm to touch PSYCH: No active psychosis, hallucinations, depression, SI/HI Objective Active Medications: Dextrose (D50w Syringe 50 Ml*) 12.5 gm IV PUSH .FOR FS < 60 - SS PRN PRN Reason: FS < 60 Dimenhydrinate (Dramamine Iv*) 12.5 mg IV PUSH ONCE PRN PRN Reason: NAUSEA/VOMITING Hydromorphone HCl (Dilaudid Inj1s*) 0.5 mg IV SLOW PU Q1H PRN PRN Reason: PAIN - SEVERE Last Admin: 11/09/18 11:45 Dose: 0.5 mg Hydromorphone HCl (Dilaudid Inj1s*) 0.2 mg IV Q5M PRN PRN Reason: PAIN - SEVERE Sodium Chloride (Ns 0.9% 1000 Ml) 1,000 mls @ 125 mls/hr IV PER RATE [facility] Piperacillin Sod/Tazobactam (Sod 3.375 gm/ Sodium Chloride) 100 mls @ 25 mls/ hr IVPB Q8H [facility] Last Admin: 11/09/18 08:51 Dose: 25 mls/hr Acetaminophen (Ofirmev*) 1,000 mg in 100 mls @ 400 mls/hr IVPB ONCE ONE Stop: 11/09/18 14:41 Insulin Glargine (Lantus(*)) 8 units SUBCUT Q24H [facility] Insulin Human Lispro (Humalog*) 0 units SUBCUT ACHS [facility]; Protocol Last Admin: 11/09/18 12:20 Dose: Not Given Ketorolac Tromethamine (Toradol Inj*) 30 mg IV Q6H PRN PRN Reason: PAIN Stop: 11/10/18 21:34 Morphine Sulfate (Morphine 4 Mg/Ml Vial (1 Ml)) 4 mg IV Q4H PRN PRN Reason: PAIN Last Admin: 11/08/18 20:53 Dose: 4 mg Naloxone HCl (Narcan*) 0.08 mg IV Q2M PRN PRN Reason: severe induced resp depression Ondansetron HCl (Zofran Inj*) 4 mg IV Q4H PRN PRN Reason: NAUSEA/VOMITING Oxycodone HCl (Roxycodone Tab*) 5 mg PO ONCE PRN PRN Reason: PAIN - MODERATE Vital Signs - 8 hr 11/09/18 11/09/18 11/09/18 07:25 08:05 09:03 Temperature 98.0 F Pulse Rate 68 Respiratory 20 20 20 Rate Blood Pressure 120/67 (mmHg) O2 Sat by Pulse 98 Oximetry 11/09/18 11/09/18 11/09/18 11:03 11:45 12:08 Temperature 98.0 F Pulse Rate 69 68 Respiratory 18 18 Rate Blood Pressure 107/63 133/77 (mmHg) O2 Sat by Pulse 95 92 Oximetry 11/09/18 12:10 Temperature 97.5 F Pulse Rate 68 Respiratory 16 Rate Blood Pressure (mmHg) O2 Sat by Pulse 95 Oximetry Oxygen Devices in Use Now: None Result Diagrams: 11/09/18 07:47 11/09/18 07:47 Assess/Plan/Problems-Billing Assessment: - Patient Problems (1) Acute cholecystitis Current Visit: Yes Status: Acute Code(s): K81.0 - ACUTE CHOLECYSTITIS SNOMED Code(s): 21975705 Comment: -Increasing LFTs, guarding, and persistent RQ tenderness -Continue Zosyn -Given poor improvement, Sx Dept recommends lap pradeep and will defer (2) Diabetes 1.5, managed as type 2 Current Visit: Yes Status: Acute Code(s): E13.9 - OTHER SPECIFIED DIABETES MELLITUS WITHOUT COMPLICATIONS SNOMED Code(s): 033065792 Comment: -Uncontrolled -Adjusted ISS as ordered -Will add low dose Lantus at 8 units SQ -Continue watchful waiting (3) UTI (urinary tract infection) Current Visit: Yes Status: Acute Comment: -Pt on Zosyn due to acute cholecystitis -Continue current regimen -Continue to follow cultures (4) DVT prophylaxis Current Visit: Yes Status: Acute Code(s): KYE6603 - SNOMED Code(s): 345861811 Comment: -Continue SCDs -Defer with Sx Dept Status and Disposition: -As above
[2018-11-09] MEDS: NS 0.9% 1000 ML** 1,000 ML IV SCH (17:45)
[2018-11-09] MEDS: Insulin GLARGINE(*) 1 UNITS UNIT SUBCUT SCH (18:06)
--- NOTE | 2018-11-09 19:08 | OP ---
CC: LAURA Booth * DATE OF OPERATION: 11/09/18 - ROOM #341 DATE OF : 56 SURGEON: Emile Potter MD STATION TENDER: None. ANESTHESIOLOGIST: Dr. Razo. ANESTHESIA: General anesthetic, local infiltration. PRE-OP DIAGNOSIS: Acute cholecystitis. POST-OP DIAGNOSIS: Acute cholecystitis with abscess. OPERATIVE PROCEDURE: Laparoscopy with drainage of gallbladder abscess and lavage. DESCRIPTION OF PROCEDURE: The patient was supine on the operating room table. After adequate general anesthetic, compression stockings, Henry Hugger warmer, and intravenous antibiotics, the abdomen was prepped with antiseptic and draped in a sterile fashion. Local infiltrative anesthesia was administered. A small umbilical incision was created. Blunt port cannula was placed. Insufflation was carried out with carbon oxide. Additional 12-mm cannula was placed in the subxiphoid space. The omentum was adherent up to the liver and to the anterior abdominal wall and the entire right upper quadrant. As this was peeled down from the anterior abdominal wall, there was purulent fluid and fibrinopurulent exudate in the gutter anterior and lateral to the liver. This was suctioned out for culture. As the omentum was started to be peeled off the dome of the gallbladder, it was densely adherent and there was really no tissue plane to be identified and as this was being done, there was an orifice from which thick creamy purulent fluid was forthcoming. The suction catheter was placed into this opening and suctioned out. The opening was wide and there seemed to be the gallbladder lumen, although it conceivably could have been an abscess adjacent to the gallbladder caused by a perforated gallbladder, it is not certain. It was felt that due to the degree of severe inflammation and the adhesiveness that the safest approach was to drain the abscess cavity and proceed no further with attempt at cholecystectomy; therefore, the whole right upper quadrant and the whole abscess cavity were well irrigated with saline solution. A Donis-Gutierrez was placed through the lateral 5-mm cannula site and placed down into the lateral gutter outside the right colon and the liver. A second ADINA drain was brought out through the midclavicular site. This had been cut to about half length and was placed into the abscess cavity. These were both sutured at the skin with 3-0 Prolene. Pneumo-peritoneum was allowed to escape. The umbilical fascia was closed with 0 Vicryl and the skin with 5-0 Vicryl, in both cases followed by Steri-Strips. She was awakened and brought to Recovery in good condition. No complications. Drains were Donis-Jr. Sponge and instrument counts correct. Estimated blood loss was 100 mL. Specimen is the peritoneal culture. [id number]/[facility] #: [id number] [facility]
[2018-11-09] MEDS: Ketorolac INJ* 30 MG/ML 1 ML VIAL IV PRN (21:00)
[2018-11-10] MEDS: NS 0.9% 1000 ML** 1,000 ML IV SCH ×2 (00:23→09:04)
[2018-11-10] MEDS: ZOSYN 3.375 GM Q8H per EXTENDED INFUSION IVPB SCH ×6 (01:47→16:55)
[2018-11-10] MEDS: HYDROmorphone INJ1* 1 MG/ML SYRINGE IV SLOW PU PRN ×3 (03:48→15:17)
[2018-11-10] MEDS: Ketorolac INJ* 30 MG/ML 1 ML VIAL IV PRN ×3 (03:49→18:12)
[2018-11-10 05:26] LABS: ABS Basophils 0 10^3/ul (0-0.2); ABS Eosinophils 0.1 10^3/ul (0-0.6); ABS Lymphocytes 1.3 10^3/ul (1.0-4.8); ABS Nucleated RBC 0 10^3/ul; Hematocrit 34 % (33-41); Hemoglobin 11.2 g/dL (12.0-16.0); Lymphocyte % 11.5 %; Mean Corpuscular HGB Conc 33 g/dL (31-36); Mean Corpuscular Hemoglobin 28 pg (27-31); Mean Corpuscular Volume 84 fL (80-97); Mean Platelet Volume 7.9 fL (7.4-10.4); Nucleated Red Blood Cells % 0; Platelet Count 424 10^3/uL (150-450); Red Blood Count 4.04 10^6 /uL (3.70-4.87); Red Cell Distribution Width 14 % (10.5-15); White Blood Count 11.4 10^3/uL (3.5-10.8)
[2018-11-10 05:43] LABS: Albumin 2.7 g/dL (3.2-5.2); BUN/Creatinine Ratio 11.3 (8-20); Calcium 8.1 mg/dL (8.6-10.3); EGFR African American 142.4 (>60); EGFR Non-African American 117.7 (>60); Globulin 2.7 g/dL (2-4); Magnesium 1.7 mg/dL (1.9-2.7); Phosphorus 3.1 mg/dL (2.5-5.0); Potassium 3.3 mmol/L (3.5-5.0); Total Bilirubin 0.6 mg/dL (0.2-1.0); Total Protein 5.4 g/dL (6.4-8.9)
[2018-11-10] MEDS ORDERED: Magnesium Sulfate IV* 3 GM in NS 0.9% 100 ML* 100 ML IVPB ONE (08:40)
--- NOTE | 2018-11-10 08:52 | PN ---
Progress Note - Progress Note Date of Service: 11/10/18 Note: POD#1 S/P drainage GB abscess T99, VS noted UO large ADINA moderate Pain much better Mild pain Abd soft, alcohol still operator RUQ, ADINA drainage not bilious Impr: S/P GB abscess On Zosyn Await C&S Advance po's when able DM per hospitalist
[2018-11-10] MEDS: Insulin LISPRO* 1 UNITS UNIT SUBCUT SCH ×4 (09:41→20:50)
[2018-11-10] MEDS: KCL 20 MEQ/100 ML IVPREMIX* 20 MEQ/100 ML BAG IV SCH ×2 (09:51→14:53)
[2018-11-10] MEDS: Insulin GLARGINE(*) 1 UNITS UNIT SUBCUT SCH (15:16)
--- NOTE | 2018-11-10 16:22 | PN ---
Subjective Date of Service: 11/10/18 Interval History: Pt seen and examined. Meds and labs reviewed. CC: N/A ROS: Denied SARMIENTO/dizziness, F/C, N/V, CP, SOB, increased cough, sputum production , abd pain, diarrhea, constipation, dysuria, myalgias, arthralgias, throat pain , and new skin lesions. The rest of the 14 point ROS are unremarkable. PHYSICAL EXAM: GEN APPEARANCE: Awake, not in acute distress HEENT: NC/AT, PERRLA, moist oral mucosa, (-) throat erythema NECK: Soft, supple, (-) cervical LAD, (-)JVD HEART: S1S2 WNL, RRR, No MRG CHEST: CTA, BL, GAE, No W/R/R ABD: Soft, ND/Appropriately tender postsurgical abd, (-)rebound, NABS 4x Q EXT: No C/C/E SKIN: Warm to touch PSYCH: No active psychosis, hallucinations, depression, SI/HI Objective Active Medications: Dextrose (D50w Syringe 50 Ml*) 12.5 gm IV PUSH .FOR FS < 60 - SS PRN PRN Reason: FS < 60 Hydromorphone HCl (Dilaudid Inj1s*) 0.5 mg IV SLOW PU Q1H PRN PRN Reason: PAIN - SEVERE Last Admin: 11/10/18 15:17 Dose: 0.5 mg Piperacillin Sod/Tazobactam (Sod 3.375 gm/ Sodium Chloride) 100 mls @ 25 mls/ hr IVPB Q8H [facility] Last Admin: 11/10/18 09:05 Dose: 25 mls/hr Sodium Chloride (Ns 0.9% 1000 Ml) 1,000 mls @ 40 mls/hr IV PER RATE [facility] Last Admin: 11/10/18 09:04 Dose: 40 mls/hr Insulin Glargine (Lantus(*)) 10 units SUBCUT Q24H [facility] Insulin Human Lispro (Humalog*) 0 units SUBCUT ACHS [facility]; Protocol Last Admin: 11/10/18 13:13 Dose: 6 units Ketorolac Tromethamine (Toradol Inj*) 30 mg IV Q6H PRN PRN Reason: PAIN Stop: 11/10/18 21:34 Last Admin: 11/10/18 12:15 Dose: 30 mg Morphine Sulfate (Morphine 4 Mg/Ml Vial (1 Ml)) 4 mg IV Q4H PRN PRN Reason: PAIN Last Admin: 11/08/18 20:53 Dose: 4 mg Ondansetron HCl (Zofran Inj*) 4 mg IV Q4H PRN PRN Reason: NAUSEA/VOMITING Vital Signs - 8 hr 11/10/18 11/10/18 11/10/18 09:08 10:39 11:26 Temperature 97.8 F Pulse Rate 70 Respiratory 18 18 18 Rate Blood Pressure 111/59 (mmHg) O2 Sat by Pulse 88 Oximetry 11/10/18 15:17 Temperature Pulse Rate Respiratory 18 Rate Blood Pressure (mmHg) O2 Sat by Pulse Oximetry Oxygen Devices in Use Now: Nasal Cannula Result Diagrams: 11/10/18 05:08 11/10/18 05:08 Microbiology and Other Data: Microbiology 11/08/18 15:00 Aerobic Blood Culture - Preliminary Blood Venous No Growth Day 2 Anaerobic Blood Culture - Preliminary No Growth Day 2 11/08/18 14:50 Aerobic Blood Culture - Preliminary Blood Venous No Growth Day 2 Anaerobic Blood Culture - Preliminary No Growth Day 2 11/08/18 17:00 Urine Culture - Final Urine 11/09/18 14:15 Gram Stain - Final Body Fluid Body Fluid Culture - Preliminary No Growth Day 1 Anaerobic Culture - Preliminary No Growth Day 1 Skin and Soft Tissue MRSA/MSSA (PCR - Final Mrsa Negative S.aureus Negative Assess/Plan/Problems-Billing Assessment: - Patient Problems (1) Acute cholecystitis Current Visit: Yes Status: Acute Code(s): K81.0 - ACUTE CHOLECYSTITIS SNOMED Code(s): 23963446 Comment: -S/P laparoscopy w/drainage of GB abscess and lavage -For lap pradeep sometime later---defer w/Sx -Continue Zosyn (2) Diabetes 1.5, managed as type 2 Current Visit: Yes Status: Acute Code(s): E13.9 - OTHER SPECIFIED DIABETES MELLITUS WITHOUT COMPLICATIONS SNOMED Code(s): 617216837 Comment: -Uncontrolled -Continue ISS as ordered -Will increase Lantus to 10 units -Continue watchful waiting (3) UTI (urinary tract infection) Current Visit: Yes Status: Acute Comment: -Pt on Zosyn due to acute cholecystitis -Continue current regimen -No growth in U/A and Blood Cx (-) x 2 days (4) DVT prophylaxis Current Visit: Yes Status: Acute Code(s): QRH1666 - SNOMED Code(s): 181420842 Comment: -Continue SCDs -Defer with Sx Dept Status and Disposition: -As above
[2018-11-11] MEDS: HYDROmorphone INJ1* 1 MG/ML SYRINGE IV SLOW PU PRN ×2 (01:49→08:00)
[2018-11-11] MEDS: ZOSYN 3.375 GM Q8H per EXTENDED INFUSION IVPB SCH ×6 (01:53→17:39)
[2018-11-11] MEDS: NS 0.9% 1000 ML** 1,000 ML IV SCH (06:22)
[2018-11-11 06:48] LABS: ABS Basophils 0.1 10^3/ul (0-0.2); ABS Eosinophils 0.4 10^3/ul (0-0.6); ABS Lymphocytes 1.7 10^3/ul (1.0-4.8); ABS Monocytes 0.7 10^3/ul (0-0.8); ABS Neutrophils 5.2 10^3/ul (1.5-7.7); ABS Nucleated RBC 0 10^3/ul; Eosinophil % 5.3 %; Hematocrit 31 % (33-41); Hemoglobin 10.3 g/dL (12.0-16.0); Lymphocyte % 20.8 %; Mean Corpuscular HGB Conc 33 g/dL (31-36); Mean Corpuscular Hemoglobin 28 pg (27-31); Mean Corpuscular Volume 84 fL (80-97); Nucleated Red Blood Cells % 0; Platelet Count 353 10^3/uL (150-450); Red Cell Distribution Width 14 % (10.5-15)
[2018-11-11 07:04] LABS: Albumin 2.4 g/dL (3.2-5.2); Albumin/Globulin Ratio 0.9 (1-3); BUN/Creatinine Ratio 8.5 (8-20); Calcium 7.9 mg/dL (8.6-10.3); EGFR African American 163.6 (>60); EGFR Non-African American 135.2 (>60); Globulin 2.7 g/dL (2-4); Magnesium 1.9 mg/dL (1.9-2.7); Potassium 3.3 mmol/L (3.5-5.0); Total Bilirubin 0.4 mg/dL (0.2-1.0); Total Protein 5.1 g/dL (6.4-8.9)
[2018-11-11] MEDS: Insulin LISPRO* 1 UNITS UNIT SUBCUT SCH ×4 (07:54→21:42)
--- NOTE | 2018-11-11 08:23 | PN ---
Progress Note - Progress Note Date of Service: 11/11/18 Note: POD#2 S/P acute cholecystitis Afeb, VS noted UO large Klarissa clears, No N/V Hungry ADINA#1 20 ml, serosang ADINA#2 50 ml, serosang, non-bilious Pain control OK Abd soft still quite sore, incis clean Impr: S/P acute cholecystitis/abscess D/C IVF Cont IV abx Advance diet D/C ADINA#1 (lateral) Home tomorrow on oral abx??
[2018-11-11] MEDS ORDERED: Potassium Chlor TAB* 20 MEQ TAB.ER PO STA (08:31)
[2018-11-11] MEDS: oxyCODONE/Acetamin 5/325 MG* TAB PO PRN ×2 (10:03→21:43)
--- NOTE | 2018-11-11 10:03 | PN ---
Progress Note - Progress Note Date of Service: 11/11/18 Note: POD #2. ADINA drain #[address] Potter. Drain contained small amount of SS fluid. Patient tolerated well without difficulty.
[2018-11-11] MEDS ORDERED: Insulin GLARGINE(*) 1 UNITS UNIT SUBCUT SCH ×2 (16:30)
--- NOTE | 2018-11-11 17:49 | PN ---
Subjective Date of Service: 11/11/18 Interval History: Pt seen and examined. Meds and labs reviewed. CC: N/A ROS: Denied SARMIENTO/dizziness, F/C, N/V, CP, SOB, increased cough, sputum production , abd pain, diarrhea, constipation, dysuria, myalgias, arthralgias, throat pain , and new skin lesions. The rest of the 14 point ROS are unremarkable. PHYSICAL EXAM: GEN APPEARANCE: Awake, not in acute distress HEENT: NC/AT, PERRLA, moist oral mucosa, (-) throat erythema NECK: Soft, supple, (-) cervical LAD, (-)JVD HEART: S1S2 WNL, RRR, No MRG CHEST: CTA, BL, GAE, No W/R/R ABD: Soft, ND/less tender postsurgical abd, more on LQ, (-)rebound, NABS 4x Q EXT: No C/C/E SKIN: Warm to touch PSYCH: No active psychosis, hallucinations, depression, SI/HI Objective Active Medications: Dextrose (D50w Syringe 50 Ml*) 12.5 gm IV PUSH .FOR FS < 60 - SS PRN PRN Reason: FS < 60 Hydromorphone HCl (Dilaudid Inj1s*) 0.5 mg IV SLOW PU Q1H PRN PRN Reason: PAIN - SEVERE Last Admin: 11/11/18 08:00 Dose: 0.5 mg Piperacillin Sod/Tazobactam (Sod 3.375 gm/ Sodium Chloride) 100 mls @ 25 mls/ hr IVPB Q8H [facility] Last Admin: 11/11/18 17:39 Dose: 25 mls/hr Sodium Chloride (Ns 0.9% 1000 Ml) 1,000 mls @ 40 mls/hr IV PER RATE [facility] Last Admin: 11/11/18 06:22 Dose: 40 mls/hr Insulin Glargine (Lantus(*)) 4 units SUBCUT Q24H [facility] Insulin Human Lispro (Humalog*) 0 units SUBCUT ACHS [facility]; Protocol Last Admin: 11/11/18 13:39 Dose: 3 units Morphine Sulfate (Morphine 4 Mg/Ml Vial (1 Ml)) 4 mg IV Q4H PRN PRN Reason: PAIN Last Admin: 11/08/18 20:53 Dose: 4 mg Ondansetron HCl (Zofran Inj*) 4 mg IV Q4H PRN PRN Reason: NAUSEA/VOMITING Oxycodone/Acetaminophen (Percocet 5/325 Tab*) 1 tab PO Q4H PRN PRN Reason: PAIN Last Admin: 11/11/18 10:03 Dose: 1 tab Vital Signs - 8 hr 11/11/18 11/11/18 11/11/18 10:03 11:15 12:46 Temperature 99.0 F Pulse Rate 75 Respiratory 18 16 16 Rate Blood Pressure 136/69 (mmHg) O2 Sat by Pulse 94 Oximetry Oxygen Devices in Use Now: Nasal Cannula Result Diagrams: 11/11/18 06:23 11/11/18 06:23 Microbiology and Other Data: Microbiology 11/08/18 15:00 Aerobic Blood Culture - Preliminary Blood Venous No Growth Day 2 Anaerobic Blood Culture - Preliminary No Growth Day 2 11/08/18 14:50 Aerobic Blood Culture - Preliminary Blood Venous No Growth Day 2 Anaerobic Blood Culture - Preliminary No Growth Day 2 11/08/18 17:00 Urine Culture - Final Urine 11/09/18 14:15 Gram Stain - Final Body Fluid Body Fluid Culture - Preliminary No Growth Day 1 Anaerobic Culture - Preliminary No Growth Day 1 Skin and Soft Tissue MRSA/MSSA (PCR - Final Mrsa Negative S.aureus Negative Assess/Plan/Problems-Billing Assessment: - Patient Problems (1) Acute cholecystitis Current Visit: Yes Status: Acute Code(s): K81.0 - ACUTE CHOLECYSTITIS SNOMED Code(s): 60306870 Comment: -S/P laparoscopy w/drainage of GB abscess and lavage -For lap pradeep sometime later---defer w/Sx -Continue Zosyn -Touch base with ID regarding d/c abx regimend/w Ella and Dr. Wayne and will defer (2) Diabetes 1.5, managed as type 2 Current Visit: Yes Status: Acute Code(s): E13.9 - OTHER SPECIFIED DIABETES MELLITUS WITHOUT COMPLICATIONS SNOMED Code(s): 645225251 Comment: -Improved control -Continue ISS as ordered -Will decrease Lantus to 4 units -Continue watchful waiting (3) UTI (urinary tract infection) Current Visit: Yes Status: Acute Comment: -Pt on Zosyn due to acute cholecystitis -Continue current regimen -No growth in U/A and Blood Cx (-) x 2 days (4) DVT prophylaxis Current Visit: Yes Status: Acute Code(s): SQM9873 - SNOMED Code(s): 676089785 Comment: -Continue SCDs -Defer with Sx Dept Status and Disposition: -Covering colleague to clarify abx recommendation from ID on D/C
--- NOTE | 2018-11-11 20:24 | CONS ---
CONSULTATION REPORT: DATE OF CONSULT: 11/11/18 PRIMARY CARE PROVIDER: LAURA Booth PHYSICIAN REQUESTING CONSULT: Dr. Josh Corbin. CONSULTING SERVICE: Infectious Disease. ATTENDING PROVIDER: Dr. Reyes Wayne * (dictated by Lou Mcgrath NP). REASON FOR CONSULT: Acute cholecystitis with abscess. IMPRESSION: 1. Acute cholecystitis, postop day #2 from laparoscopy and abscess drainage. Body fluids collected during the surgery shows 4+ neutrophils, 3+ nucleated cells, 1+ Gram-positive cocci, methicillin-resistant Staphylococcus aureus and methicillin- sensitive Staphylococcus aureus negative. There is no growth in the fluid cultures or the anaerobic cultures on day 2. She had blood cultures with no growth on day 3. She is currently receiving Zosyn. I recommend continuing IV Zosyn. Consider doing either abdominal CT versus ultrasound to evaluate the abscess is still present. This will help guide whether or not she can be transitioned from IV to oral antibiotics. 2. Diabetes mellitus, diet controlled. HISTORY OF PRESENT ILLNESS: Ms. Nguyen is a 58-year-old female with past medical history significant for diet-controlled diabetes mellitus, type 2, who states for about the last 3 weeks, she has been having right upper quadrant abdominal pain. She was initially seeing her primary care provider and then was referred to Dr. Potter's office. She was placed on antibiotics with surgery scheduled for the following week. She states that she developed increased pain over a 10-day period and represented to the emergency room. She denied fevers or chills at that time, no vomiting, with mild nausea. She had undergone an ultrasound on 10/30/18 showing a stone in the neck of the gallbladder and some mild gallbladder wall thickening. While in the emergency room, she underwent an abdomen and pelvis CT scan showing a dilated, thick-walled gallbladder with surrounding inflammatory changes suggestive of acute cholecystitis. She was admitted by surgical service with plan for IV hydration, pain management, and likely cholecystectomy in 24 to 48 hours. While in the hospital on 11/09/18, she underwent attempted laparoscopic cholecystectomy and was found to have a gallbladder abscess and underwent drainage of the abscess and lavage. She had 2 ADINA dra[address] left in place, one of which was removed today. She was then afebrile. Her initial leukocytosis on admission of 16.7 has resolved. Her initial elevated AST and ALT had resolved. Her CRP on admission was 13.69. The patient reports continued feeling as though she has had fevers or chills but there are no documented fevers in the medical record. Temperature max is 99.5. She denies joint pain, muscle pain, rash, diarrhea. She reports constipation, stating she has not moved her bowels since the day of admission. She denies urinary symptoms such as urgency, dysuria, frequency. She has had no recent travel. PAST MEDICAL HISTORY: Diet-controlled diabetes mellitus, type 2. PAST SURGICAL HISTORY: 1. [place] tooth extraction. 2. Laparoscopy with gallbladder abscess drainage. MEDICATIONS: Home medication: 1. Multivitamin 1 tablet by mouth daily. Hospital medications: 1. D5W 12.5 g IV push for glucose less than 60. 2. Hydromorphone 0.5 mg IV push every 1 hour as needed for pain. 3. Lantus insulin 4 units subcutaneous every day. 4. Humalog sliding scale with meals and at bedtime subcutaneously. 5. Morphine 4 mg IV every 4 hours as needed for pain. 6. Zofran 4 mg IV every 4 hours as needed for nausea. 7. Percocet 5/325 one tablet by mouth every 4 hours as needed for pain. 8. Zosyn 3.375 g intravenously every 8 hours. 9. Sodium chloride 40 mL an hour. ALLERGIES: No known drug allergies. FAMILY HISTORY: Denies family history of recurrent or resistant infections. Paternal side of her family with history of heart disease. Father with history of diabetes. Mother with history of lymphoma. SOCIAL HISTORY: She denies alcohol or recreational drug use. She is a current smoker, smoking half a pack a day for the last 40 years. She is motivated to quit. REVIEW OF SYSTEMS: I performed a 10-point review of systems. All the pertinent positives and negatives are mentioned in the history of present illness. The remaining review of systems is negative. PHYSICAL EXAM: Vital Signs: Temperature 99.0, heart rate 75, respiratory rate 16, O2 sat 94% on 2 L, blood pressure 136/69. General Appearance: The patient is alert, pleasant, appears to be in no acute distress. Head: Normocephalic, atraumatic. ENT: Pupils are equal and reactive to light. Extraocular movements are intact. Mucous membranes are moist. Neck: Supple. No lymphadenopathy. Neurological: Cranial nerves II through XII are grossly intact. Moves all extremities. Alert and oriented x4. Cardiovascular: Regular rate and rhythm. S1 and S2 are present. No murmurs, rubs, or gallops heard. Respiratory: No accessory muscle use. Lungs are clear to auscultation bilateral. Abdomen: Bowel sounds are positive. Abdomen soft, nontender, nondistended. Extremities: No lower extremity edema. DP and PT pulses are 2+ and symmetric. Psychological: Calm and cooperative. Skin: No rashes or abnormalities seen on the exposed skin. DIAGNOSTIC STUDIES/LAB DATA: Sodium 140, potassium 3.3, chloride 109, CO2 of 25 , BUN 4, creatinine 0.49, glucose 109. White blood cell count 8.0, hemoglobin 10.3, hematocrit 34, platelet count 353. Urine culture with no growth. Blood cultures with no growth day 2. Body fluid with no growth on day 2. Please see the impression and recommendations outlined above. Thank you for asking us to see Ms. Nguyen in consultation. TIME SPENT: Time for this consultation was approximately 45 minutes, greater than half of that was spent with the patient and discussing medications , past medical history, the events leading to her arrival today, and performing a physical examination. The case has been reviewed with the attending, Dr. Wayne, who agrees with the plan of care. LOU PRADO, SID [id number]/[facility] #: [id number] MTDCornell
[2018-11-12] MEDS: oxyCODONE/Acetamin 5/325 MG* TAB PO PRN ×3 (01:59→11:08)
[2018-11-12] MEDS: ZOSYN 3.375 GM Q8H per EXTENDED INFUSION IVPB SCH ×4 (02:00→08:45)
[2018-11-12 07:23] LABS: Hematocrit 32 % (33-41); Hemoglobin 10.7 g/dL (12.0-16.0); Mean Corpuscular HGB Conc 34 g/dL (31-36); Mean Corpuscular Hemoglobin 28 pg (27-31); Mean Corpuscular Volume 84 fL (80-97); Mean Platelet Volume 8.1 fL (7.4-10.4); Platelet Count 372 10^3/uL (150-450); Red Blood Count 3.79 10^6 /uL (3.70-4.87); Red Cell Distribution Width 14 % (10.5-15); White Blood Count 8.7 10^3/uL (3.5-10.8)
[2018-11-12 07:35] LABS: BUN/Creatinine Ratio 11.8 (8-20); Calcium 8.4 mg/dL (8.6-10.3); EGFR African American 148.8 (>60); Potassium 3.8 mmol/L (3.5-5.0)
[2018-11-12] MEDS: Insulin LISPRO* 1 UNITS UNIT SUBCUT SCH ×2 (08:45→12:54)
--- NOTE | 2018-11-12 11:19 | CONSULT ---
Subjective Interval History: No events overnight. Repeat ultrasound without discrete fluid collection around gallbladder. Plan from surgical service is to discharge today on oral antibiotics. Main question for Medical consult is DM management. Patient reports she had diabetes before when with her son. She is familiar with lifestyle interventions to reduce blood sugar and is familiar with medications discussed today (metformin, Invokana). Pt expresses strong desire to eat better, exercise, and lose weight in order to avoid multiple medications. Discussed that A1c in double-digits is concerning but can be reduced if lifestyle interventions are intense, but should certainly start with medications, as well. Extensively discussed risks of elevated blood sugar. Review of Systems - Measurements Intake and Output: Intake and Output Last 24 Hours 11/10/18 11/11/18 11/12/18 11/13/18 06:59 06:59 06:59 06:59 Intake Total 2688 5535 2050 Output Total 910 1417 1295 600 Balance 1778 4118 755 -600 Intake: IV Fluids 2098 2815 250 ABX - ZOSYN 100 419 210 KCL 20 Meq 105 LR 1000 Magnesium 3 gm 100 ns 998 2191 40 IVPB 110 100 ABX - ZOSYN 100 KCL 20 Meq 110 Oral 590 2610 1700 Output: ADINA #1 50 20 ADINA #2 60 47 45 Urine 800 1350 1250 600 Other: Estimated Void Medium Large Date of Last Bowel unknown Movement # Bowel Movements 0 0 0 # Voids 3 1 Objective Active Medications: Dextrose (D50w Syringe 50 Ml*) 12.5 gm IV PUSH .FOR FS < 60 - SS PRN PRN Reason: FS < 60 Hydromorphone HCl (Dilaudid Inj1s*) 0.5 mg IV SLOW PU Q1H PRN PRN Reason: PAIN - SEVERE Last Admin: 11/11/18 08:00 Dose: 0.5 mg Piperacillin Sod/Tazobactam (Sod 3.375 gm/ Sodium Chloride) 100 mls @ 25 mls/ hr IVPB Q8H [facility] Last Admin: 11/12/18 08:45 Dose: 25 mls/hr Insulin Glargine (Lantus(*)) 4 units SUBCUT Q24H [facility] Last Admin: 11/11/18 18:14 Dose: 4 units Insulin Human Lispro (Humalog*) 0 units SUBCUT ACHS [facility]; Protocol Last Admin: 11/12/18 08:45 Dose: 3 units Morphine Sulfate (Morphine 4 Mg/Ml Vial (1 Ml)) 4 mg IV Q4H PRN PRN Reason: PAIN Last Admin: 11/08/18 20:53 Dose: 4 mg Ondansetron HCl (Zofran Inj*) 4 mg IV Q4H PRN PRN Reason: NAUSEA/VOMITING Oxycodone/Acetaminophen (Percocet 5/325 Tab*) 1 tab PO Q4H PRN PRN Reason: PAIN Last Admin: 11/12/18 11:08 Dose: 1 tab Vital Signs - 8 hr 11/12/18 11/12/18 11/12/18 04:02 06:20 07:52 Temperature 98.3 F 98.6 F Pulse Rate 68 72 Respiratory 16 16 16 Rate Blood Pressure 138/71 130/65 (mmHg) O2 Sat by Pulse 95 92 Oximetry 11/12/18 11/12/18 08:00 11:08 Temperature Pulse Rate Respiratory 16 18 Rate Blood Pressure (mmHg) O2 Sat by Pulse Oximetry Oxygen Devices in Use Now: Nasal Cannula Result Diagrams: 11/12/18 06:49 11/12/18 06:49 Microbiology and Other Data: Microbiology 11/08/18 15:00 Aerobic Blood Culture - Preliminary Blood Venous No Growth Day 2 Anaerobic Blood Culture - Preliminary No Growth Day 2 11/08/18 14:50 Aerobic Blood Culture - Preliminary Blood Venous No Growth Day 2 Anaerobic Blood Culture - Preliminary No Growth Day 2 11/08/18 17:00 Urine Culture - Final Urine 11/09/18 14:15 Gram Stain - Final Body Fluid Body Fluid Culture - Preliminary No Growth Day 1 Anaerobic Culture - Preliminary No Growth Day 1 Skin and Soft Tissue MRSA/MSSA (PCR - Final Mrsa Negative S.aureus Negative Assessment/Plan - Billing Assessment: 58W presenting with acute cholecytitis and abscess near gallbladder, now s/p ex lab with lavage - no cholecystectomy. Medicine asked to consult for new diabetes diagnosis with A1c 13%. - extensively discussed lifestyle interventions with patient: diet, exercise, weight loss - recommend to start metformin 500mg daily and increase as tolerated to 2000mg daily - should likely take 2nd line agent, as well, and recommend Invokana, although patient is reluctant - should follow up closely with PCP for routine A1c monitoring, will need to be on statin - will need f/u annually with podiatry and ophthomology Discussed above with patient. All questions answered.
[2018-11-12 11:37] VITALS: BP 140/64
--- NOTE | 2018-11-12 12:15 | DS ---
CC: Dr. Emile Potter; LAURA Booth* DISCHARGE SUMMARY: DATE OF ADMISSION: 11/08/18 DATE OF DISCHARGE: 11/12/18 PRINCIPAL ADMITTING DIAGNOSIS: Acute cholecystitis. OPERATIVE PROCEDURE ON THIS ADMISSION: Laparoscopic drainage of gallbladder abscess. COMPLICATIONS: None. HOSPITAL COURSE: The patient is a 58-year-old female came to the hospital, was admitted on 11/08/18. She was taken to the operating room the next day and found to have severe infection around the gallbladder to where the gallbladder was drained of purulent material. Drains were placed. The gallbladder was not removed. She was maintained on Donis-Gutierrez drainage and intravenous antibiotics and had improvement in her white blood count back to normal. Her liver chemistries were normal. She showed signs of diabetes on admission and she was seen in consultation by the hospital service that managed the diabetes and she was ultimately discharged home on 11/12/18 at which time she was afebrile, tolerating oral intake, ambulating well, pain control was good. She was recovering nicely. One of the Donis-Gutierrez drains had been removed, she will go home with the other one and will go home on oral antibiotics as well and follow up in the office in a few days for removal of the ADINA drain. She will also follow with her primary regarding her diabetes. [id number]/[facility] #: [id number] JAYLIN
--- NOTE | 2018-11-12 17:22 | PN ---
Progress Note - Progress Note Date of Service: 11/12/18 Note: (late entry; patient seen with Dr. Potter this a.m.) S: POD #4. Much better. No sig pain. Klarissa diet well. Ambulating. O: Vital Signs - 8 hr 11/12/18 11/12/18 11:08 11:29 Temperature 98.7 F Pulse Rate 71 Respiratory 18 16 Rate Blood Pressure 140/64 (mmHg) O2 Sat by Pulse 93 Oximetry Intake and Output Last 24 Hours 11/10/18 11/11/18 11/12/18 11/13/18 06:59 06:59 06:59 06:59 Intake Total 2688 5535 2050 Output Total 910 1417 1295 600 Balance 1778 4118 755 -600 Intake: IV Fluids 2098 2815 250 ABX - ZOSYN 100 419 210 KCL 20 Meq 105 LR 1000 Magnesium 3 gm 100 ns 998 2191 40 IVPB 110 100 ABX - ZOSYN 100 KCL 20 Meq 110 Oral 590 2610 1700 Output: ADINA #1 50 20 ADINA #2 60 47 45 Urine 800 1350 1250 600 Other: Estimated Void Medium Large Date of Last Bowel unknown Movement # Bowel Movements 0 0 0 # Voids [address] Potter: abd soft; no sig tenderness; ADINA w/ light serosang drainage US: COMPARISONS: CT dated November 08, 2018, ultrasound dated October 30, 2018 TECHNIQUE: Multiple transverse and longitudinal ultrasound images were obtained limited to the gallbladder using grayscale and color Doppler imaging. FINDINGS: A surgical drain is noted within the gallbladder fossa. The gallbladder is not distended and is not well evaluated. There is a small amount of pericholecystic fluid without loculated fluid collection. Abscess noted on the previous examination is no longer evident. IMPRESSION: A SURGICAL DRAIN IS NOTED IN THE GALLBLADDER FOSSA. THERE IS A SMALL AMOUNT OF PERICHOLECYSTIC FLUID WITHOUT LOCULATED FLUID COLLECTION. A: s/p laparoscopic drainage of gallbladder abscess, doing well; ready for d/c P: home today w/ ADINA drain, on Augmentin x 7d; office f/u Saturday for possible drain removal. See dictated d/c summary.
== END 2018-11-12 14:10 | disposition home or self-care (01) ==
LOC: ED 13:36 → MED 21:33 → SSU 11-09 16:27
PROVIDERS: ADMIT Surgery; ATTEND Surgery
PROC: 0F9440Z Drainage of Gallbladder with Drainage Device, Percutaneous Endoscopic Approach (ICD-10-PCS; principal; 2018-11-08)
DX: K81.0 Acute cholecystitis (principal); N39.0 Urinary tract infection, site not specified; F17.210 Nicotine dependence, cigarettes, uncomplicated; E11.65 Type 2 diabetes mellitus with hyperglycemia; K21.9 Gastro-esophageal reflux disease without esophagitis; Z82.49 Family history of ischemic heart disease and other diseases of the circulatory system; Z83.3 Family history of diabetes mellitus; Z80.7 Family history of other malignant neoplasms of lymphoid, hematopoietic and related tissues
CPT/HCPCS: 36415; 71045; 74019; 74177; 76705; 80048; 80053; 81003; 81015; 82150; 83036; 83605; 83690; 83735; 84100; 85025; 85027; 86140; 87040; 87070; 87073; 87086; 87205; 87640; 87641; 99285; A9270-GY; J0330; J0694; J1100; J1170; J1885; J2250; J2270; J2405; J2543; J2704; J2765; J3010; J3475; J3480; Q9967